=== PATIENT | male | born 1970 | race African-American/Black ===

== ENCOUNTER 2019-05-30 08:38 | Inpatient (IN) ==
[2019-05-30] MEDS ORDERED: ONDANSETRON 4 MG/2 ML VIAL IV STA (09:07)
[2019-05-30 09:27] LABS: Basophils % 0.2 % (0.0-0.8); Eosinophils # 0.1 10*3/uL (0.0-0.87); Eosinophils % 0.6 % (0.00-10.9); Hemoglobin 10.3 GM/DL (14.0-18.0); Immature Granulocytes % 0.6 %; Immature Granulocytes Absolute 0.06 #; Lymphocytes # 0.9 10*3/uL (1.4-4.0); Lymphocytes % 9.2 % (21.2-54.2); Mean Corpuscular HGB Conc 30.3 GM/DL (32-36); Mean Corpuscular Volume 85.2 FL (87-102); Mean Platelet Volume 10.1 FL (9.6-12.0); Monocytes % 8.2 % (1.7-12.7); Neutrophils % 81.2 % (38.7-73.9); Platelet Count 290 T/CUMM (130-400); Red Blood Count 3.99 MC/CUMM (3.8-5.5); Red Cell Distribution Width 21.3 % (9.3-17.3); White Blood Count 10.2 T/CUMM (4-12)
[2019-05-30 09:47] LABS: Alanine Aminotransferase 24 U/L (16-61); Albumin 2.5 G/DL (3.4-5.0); Alkaline Phosphatase 141 U/L (45-117); Aspartate Amino Transferase 24 U/L (0-37); Blood Urea Nitrogen 49 MG/DL (7-18); Calcium 8.5 MG/DL (8.5-10.1); Estimated Glom Filtration Rate 10 ML/MIN; Glucose 116 MG/DL (74-106); Osmolality,Calculated 283.1 MOS/KG (273-304)
[2019-05-30] MEDS ORDERED: VANCOMYCIN INJ 1,000 MG in SODIUM CHLORIDE 0.9% 250 ML IV STA (11:21)
[2019-05-30] MEDS ORDERED: ACETAMINOPHEN 325 MG TABLET PO PRN (11:41)
[2019-05-30] MEDS ORDERED: ONDANSETRON 4 MG/2 ML VIAL IV PRN (11:41)
[2019-05-30] MEDS: HYDROmorphone 2 MG/1 ML VIAL IV PRN ×2 (11:58→17:57)
[2019-05-30] MEDS: ENOXAPARIN 30 MG/0.3 ML SYRINGE SUBCUT SCH (15:08)
[2019-05-30] MEDS ORDERED: DEXTROSE 50% 25 GM/50 ML VIAL IV PRN (17:18)
[2019-05-30] MEDS ORDERED: GLUCAGON 1 MG VIAL IM PRN (17:18)
[2019-05-30] MEDS ORDERED: GENTAMICIN INJ 160 MG in SODIUM CHLORIDE 0.9% 100 ML IV ONE (18:22)
[2019-05-30] MEDS ORDERED: LIDOCAINE/PRILOCAINE CREAM 5 GM TUBE TOP SCH (20:00)
[2019-05-30 20:35] LABS: Hepatitis B Surface Ag Quant < 0.10 Index; Hepatitis B Surface Ag Result Negative (Negative)
[2019-05-30] MEDS: INSULIN REGULAR 100 UNIT/ML SUBCUT SCH (23:03)
[2019-05-30] MEDS: hydrALAZINE 25 MG TABLET PO SCH (23:04)
[2019-05-30] MEDS: METOPROLOL TARTRATE 100 MG TABLET PO SCH (23:04)
[2019-05-30] MEDS: DOCUSATE SODIUM 100 MG CAPSULE PO SCH (23:04)
[2019-05-30] MEDS: CYCLOBENZAPRINE 10 MG TABLET PO SCH (23:04)
[2019-05-31] MEDS: INSULIN REGULAR 100 UNIT/ML SUBCUT SCH ×4 (08:06→20:26)
[2019-05-31] MEDS: ATORVASTATIN 40 MG TABLET PO SCH (08:10)
[2019-05-31] MEDS: PANTOPRAZOLE 40 MG TABLET PO SCH (08:10)
[2019-05-31] MEDS: hydrALAZINE 25 MG TABLET PO SCH ×3 (08:10→20:27)
[2019-05-31] MEDS: METOPROLOL TARTRATE 100 MG TABLET PO SCH ×2 (08:10→20:27)
[2019-05-31] MEDS: DOCUSATE SODIUM 100 MG CAPSULE PO SCH ×2 (08:10→20:27)
[2019-05-31] MEDS: SEVELAMER CARBONATE 800 MG TABLET PO SCH ×3 (08:10→16:58)
[2019-05-31] MEDS: ASPIRIN EC 81 MG TABLET PO SCH (08:10)
[2019-05-31 08:18] LABS: Basophils # 0.1 10*3/uL (0.0-0.2); Basophils % 0.6 % (0.0-0.8); Eosinophils # 0.1 10*3/uL (0.0-0.87); Eosinophils % 1.2 % (0.00-10.9); Hematocrit 34.9 VOL% (42.0-52.0); Hemoglobin 10.5 GM/DL (14.0-18.0); Immature Granulocytes % 0.6 %; Immature Granulocytes Absolute 0.06 #; Lymphocytes # 1.4 10*3/uL (1.4-4.0); Lymphocytes % 13.8 % (21.2-54.2); Mean Corpuscular HGB Conc 30.1 GM/DL (32-36); Mean Corpuscular Volume 86.4 FL (87-102); Mean Platelet Volume 10.1 FL (9.6-12.0); Monocytes % 11.7 % (1.7-12.7); Neutrophils % 72.1 % (38.7-73.9); Platelet Count 270 T/CUMM (130-400); Red Blood Count 4.04 MC/CUMM (3.8-5.5); Red Cell Distribution Width 21.2 % (9.3-17.3); White Blood Count 10.4 T/CUMM (4-12)
[2019-05-31 08:37] LABS: Calcium 8.7 MG/DL (8.5-10.1); Osmolality,Calculated 277.1 MOS/KG (273-304)
[2019-05-31] MEDS: HYDROmorphone 2 MG/1 ML VIAL IV PRN ×2 (11:08→18:23)
[2019-05-31] MEDS: ENOXAPARIN 30 MG/0.3 ML SYRINGE SUBCUT SCH (11:10)
[2019-05-31] MEDS ORDERED: VANCOMYCIN INJ 1,000 MG in SODIUM CHLORIDE 0.9% 250 ML IV SCH (13:00)
[2019-05-31] MEDS ORDERED: VANCOMYCIN INJ 750 MG in SODIUM CHLORIDE 0.9% 250 ML IV PRN (13:54)
[2019-05-31] MEDS ORDERED: VANCOMYCIN INJ 1,500 MG in SODIUM CHLORIDE 0.9% 500 ML IV ONE (15:30)
[2019-05-31 18:56] LABS: Neutrophils,Peritoneal Fluid 44 %
[2019-05-31 18:57] LABS: RBC,Peritoneal Fluid < 1 T/CUMM
[2019-05-31] MEDS: CYCLOBENZAPRINE 10 MG TABLET PO SCH (20:27)
[2019-06-01 04:37] LABS: Basophils # 0.1 10*3/uL (0.0-0.2); Basophils % 0.6 % (0.0-0.8); Eosinophils # 0.2 10*3/uL (0.0-0.87); Eosinophils % 1.6 % (0.00-10.9); Hematocrit 31.2 VOL% (42.0-52.0); Hemoglobin 9.5 GM/DL (14.0-18.0); Immature Granulocytes % 0.5 %; Immature Granulocytes Absolute 0.05 #; Lymphocytes # 1.4 10*3/uL (1.4-4.0); Lymphocytes % 14.7 % (21.2-54.2); Mean Corpuscular HGB Conc 30.4 GM/DL (32-36); Mean Corpuscular Volume 85.7 FL (87-102); Mean Platelet Volume 10.6 FL (9.6-12.0); Monocytes % 11.6 % (1.7-12.7); Platelet Count 266 T/CUMM (130-400); Red Blood Count 3.64 MC/CUMM (3.8-5.5); Red Cell Distribution Width 20.8 % (9.3-17.3); White Blood Count 9.6 T/CUMM (4-12)
[2019-06-01 05:01] LABS: Calcium 8.4 MG/DL (8.5-10.1)
[2019-06-01] MEDS: SEVELAMER CARBONATE 800 MG TABLET PO SCH ×3 (08:34→17:07)
[2019-06-01] MEDS: METOPROLOL TARTRATE 100 MG TABLET PO SCH ×2 (08:34→21:18)
[2019-06-01] MEDS: ASPIRIN EC 81 MG TABLET PO SCH (08:34)
[2019-06-01] MEDS: hydrALAZINE 25 MG TABLET PO SCH ×3 (08:34→21:18)
[2019-06-01] MEDS: DOCUSATE SODIUM 100 MG CAPSULE PO SCH ×2 (08:34→21:18)
[2019-06-01] MEDS: PANTOPRAZOLE 40 MG TABLET PO SCH (08:34)
[2019-06-01] MEDS: ATORVASTATIN 40 MG TABLET PO SCH (08:34)
[2019-06-01] MEDS: HYDROmorphone 2 MG/1 ML VIAL IV PRN ×2 (08:34→13:46)
[2019-06-01] MEDS: INSULIN REGULAR 100 UNIT/ML SUBCUT SCH ×4 (08:38→21:19)
[2019-06-01] MEDS: ENOXAPARIN 30 MG/0.3 ML SYRINGE SUBCUT SCH (12:13)
[2019-06-01] MEDS: CYCLOBENZAPRINE 10 MG TABLET PO SCH (21:18)
[2019-06-02 05:19] LABS: Basophils % 0.3 % (0.0-0.8); Eosinophils # 0.3 10*3/uL (0.0-0.87); Eosinophils % 2.5 % (0.00-10.9); Hematocrit 31.2 VOL% (42.0-52.0); Hemoglobin 9.6 GM/DL (14.0-18.0); Immature Granulocytes % 0.8 %; Immature Granulocytes Absolute 0.08 #; Lymphocytes # 1.3 10*3/uL (1.4-4.0); Lymphocytes % 11.9 % (21.2-54.2); Mean Corpuscular HGB Conc 30.8 GM/DL (32-36); Mean Corpuscular Volume 84.3 FL (87-102); Monocytes % 7.2 % (1.7-12.7); Neutrophils % 77.3 % (38.7-73.9); Platelet Count 297 T/CUMM (130-400); Red Cell Distribution Width 20.7 % (9.3-17.3); White Blood Count 10.5 T/CUMM (4-12)
[2019-06-02 05:50] LABS: Calcium 8.3 MG/DL (8.5-10.1); Osmolality,Calculated 277.4 MOS/KG (273-304)
[2019-06-02] MEDS: METOPROLOL TARTRATE 100 MG TABLET PO SCH ×2 (09:36→20:01)
[2019-06-02] MEDS: ATORVASTATIN 40 MG TABLET PO SCH (09:36)
[2019-06-02] MEDS: ASPIRIN EC 81 MG TABLET PO SCH (09:36)
[2019-06-02] MEDS: PANTOPRAZOLE 40 MG TABLET PO SCH (09:36)
[2019-06-02] MEDS: DOCUSATE SODIUM 100 MG CAPSULE PO SCH ×2 (09:36→20:01)
[2019-06-02] MEDS: hydrALAZINE 25 MG TABLET PO SCH ×3 (09:37→20:01)
[2019-06-02] MEDS: SEVELAMER CARBONATE 800 MG TABLET PO SCH ×3 (09:37→17:16)
[2019-06-02] MEDS: INSULIN REGULAR 100 UNIT/ML SUBCUT SCH ×4 (09:37→20:21)
[2019-06-02] MEDS: HYDROmorphone 2 MG/1 ML VIAL IV PRN ×2 (09:40→16:49)
[2019-06-02] MEDS ORDERED: VANCOMYCIN INJ 750 MG in SODIUM CHLORIDE 0.9% 250 ML IV ONE (17:00)
[2019-06-02] MEDS: ENOXAPARIN 30 MG/0.3 ML SYRINGE SUBCUT SCH (17:17)
[2019-06-02] MEDS ORDERED: GENTAMICIN INJ 100 MG in PREMIX 1 EACH IV SCH (18:00)
[2019-06-02] MEDS: CYCLOBENZAPRINE 10 MG TABLET PO SCH (20:01)
[2019-06-03 05:53] LABS: Basophils # 0.1 10*3/uL (0.0-0.2); Basophils % 0.5 % (0.0-0.8); Eosinophils # 0.2 10*3/uL (0.0-0.87); Eosinophils % 2.5 % (0.00-10.9); Hematocrit 34.3 VOL% (42.0-52.0); Hemoglobin 10.2 GM/DL (14.0-18.0); Immature Granulocytes % 0.9 %; Immature Granulocytes Absolute 0.09 #; Lymphocytes # 1.2 10*3/uL (1.4-4.0); Lymphocytes % 12.3 % (21.2-54.2); Mean Corpuscular HGB Conc 29.7 GM/DL (32-36); Mean Corpuscular Volume 86.6 FL (87-102); Mean Platelet Volume 10.3 FL (9.6-12.0); Neutrophils % 76.8 % (38.7-73.9); Platelet Count 351 T/CUMM (130-400); Red Blood Count 3.96 MC/CUMM (3.8-5.5); Red Cell Distribution Width 21.6 % (9.3-17.3); White Blood Count 9.8 T/CUMM (4-12)
[2019-06-03] MEDS: HYDROmorphone 2 MG/1 ML VIAL IV PRN ×2 (05:53→15:46)
[2019-06-03 06:27] LABS: Calcium 8.1 MG/DL (8.5-10.1); Osmolality,Calculated 286.3 MOS/KG (273-304)
[2019-06-03] MEDS: INSULIN REGULAR 100 UNIT/ML SUBCUT SCH ×4 (08:24→21:20)
[2019-06-03] MEDS: SEVELAMER CARBONATE 800 MG TABLET PO SCH ×3 (09:14→16:59)
[2019-06-03] MEDS: METOPROLOL TARTRATE 100 MG TABLET PO SCH ×2 (09:14→21:21)
[2019-06-03] MEDS: PANTOPRAZOLE 40 MG TABLET PO SCH (09:14)
[2019-06-03] MEDS: ASPIRIN EC 81 MG TABLET PO SCH (09:14)
[2019-06-03] MEDS: hydrALAZINE 25 MG TABLET PO SCH ×3 (09:15→21:21)
[2019-06-03] MEDS: ATORVASTATIN 40 MG TABLET PO SCH (09:15)
[2019-06-03] MEDS: DOCUSATE SODIUM 100 MG CAPSULE PO SCH ×2 (09:15→21:20)
[2019-06-03] MEDS ORDERED: cefTRIAXone 2,000 MG VIAL IM SCH (11:30)
[2019-06-03] MEDS ORDERED: cefTRIAXone 2,000 MG VIAL IV SCH (13:22)
[2019-06-03] MEDS: cefTRIAXone 2,000 MG in SYRINGE 1 EACH IV SCH (15:46)
[2019-06-03] MEDS: ENOXAPARIN 30 MG/0.3 ML SYRINGE SUBCUT SCH (15:46)
[2019-06-03] MEDS: CYCLOBENZAPRINE 10 MG TABLET PO SCH (21:20)
[2019-06-04] MEDS: HYDROmorphone 2 MG/1 ML VIAL IV PRN ×3 (01:25→22:58)
[2019-06-04 05:35] LABS: Basophils # 0.1 10*3/uL (0.0-0.2); Basophils % 0.6 % (0.0-0.8); Eosinophils # 0.3 10*3/uL (0.0-0.87); Eosinophils % 2.7 % (0.00-10.9); Hematocrit 31.4 VOL% (42.0-52.0); Hemoglobin 9.5 GM/DL (14.0-18.0); Lymphocytes # 1.4 10*3/uL (1.4-4.0); Lymphocytes % 13.7 % (21.2-54.2); Mean Corpuscular HGB Conc 30.3 GM/DL (32-36); Mean Corpuscular Volume 86.7 FL (87-102); Mean Platelet Volume 9.8 FL (9.6-12.0); Monocytes % 9.3 % (1.7-12.7); Neutrophils % 72.7 % (38.7-73.9); Platelet Count 373 T/CUMM (130-400); Red Blood Count 3.62 MC/CUMM (3.8-5.5); Red Cell Distribution Width 21.3 % (9.3-17.3); White Blood Count 10.4 T/CUMM (4-12)
[2019-06-04 06:06] LABS: Calcium 8.3 MG/DL (8.5-10.1); Osmolality,Calculated 286.1 MOS/KG (273-304)
[2019-06-04] MEDS: SEVELAMER CARBONATE 800 MG TABLET PO SCH ×3 (09:15→17:39)
[2019-06-04] MEDS: hydrALAZINE 25 MG TABLET PO SCH ×3 (09:15→20:50)
[2019-06-04] MEDS: DOCUSATE SODIUM 100 MG CAPSULE PO SCH ×2 (09:15→20:49)
[2019-06-04] MEDS: INSULIN REGULAR 100 UNIT/ML SUBCUT SCH ×4 (09:15→20:46)
[2019-06-04] MEDS: ASPIRIN EC 81 MG TABLET PO SCH (09:15)
[2019-06-04] MEDS: PANTOPRAZOLE 40 MG TABLET PO SCH (09:15)
[2019-06-04] MEDS: ATORVASTATIN 40 MG TABLET PO SCH (09:15)
[2019-06-04] MEDS: METOPROLOL TARTRATE 100 MG TABLET PO SCH ×2 (09:15→20:49)
[2019-06-04] MEDS: ENOXAPARIN 30 MG/0.3 ML SYRINGE SUBCUT SCH (12:47)
[2019-06-04] MEDS: cefTRIAXone 2,000 MG in SYRINGE 1 EACH IV SCH (14:53)
[2019-06-04] MEDS: CYCLOBENZAPRINE 10 MG TABLET PO SCH (20:49)
[2019-06-05 06:24] LABS: Basophils # 0.1 10*3/uL (0.0-0.2); Basophils % 0.7 % (0.0-0.8); Eosinophils # 0.3 10*3/uL (0.0-0.87); Eosinophils % 3.3 % (0.00-10.9); Hematocrit 32.4 VOL% (42.0-52.0); Hemoglobin 9.7 GM/DL (14.0-18.0); Immature Granulocytes % 0.8 %; Immature Granulocytes Absolute 0.07 #; Lymphocytes # 1.3 10*3/uL (1.4-4.0); Lymphocytes % 14.8 % (21.2-54.2); Mean Corpuscular HGB Conc 29.9 GM/DL (32-36); Mean Corpuscular Volume 86.6 FL (87-102); Mean Platelet Volume 9.6 FL (9.6-12.0); Monocytes % 9.8 % (1.7-12.7); Neutrophils % 70.6 % (38.7-73.9); Platelet Count 355 T/CUMM (130-400); Red Blood Count 3.74 MC/CUMM (3.8-5.5); Red Cell Distribution Width 21.4 % (9.3-17.3); White Blood Count 8.9 T/CUMM (4-12)
[2019-06-05 06:40] LABS: Calcium 8.3 MG/DL (8.5-10.1); Osmolality,Calculated 277.8 MOS/KG (273-304)
[2019-06-05] MEDS: INSULIN REGULAR 100 UNIT/ML SUBCUT SCH ×4 (08:42→20:01)
[2019-06-05] MEDS: PANTOPRAZOLE 40 MG TABLET PO SCH (08:43)
[2019-06-05] MEDS: hydrALAZINE 25 MG TABLET PO SCH ×3 (08:43→20:01)
[2019-06-05] MEDS: METOPROLOL TARTRATE 100 MG TABLET PO SCH ×2 (08:43→20:01)
[2019-06-05] MEDS: ATORVASTATIN 40 MG TABLET PO SCH (08:43)
[2019-06-05] MEDS: SEVELAMER CARBONATE 800 MG TABLET PO SCH ×3 (08:43→17:06)
[2019-06-05] MEDS: DOCUSATE SODIUM 100 MG CAPSULE PO SCH ×2 (08:43→20:01)
[2019-06-05] MEDS: ASPIRIN EC 81 MG TABLET PO SCH (08:44)
[2019-06-05] MEDS: HYDROmorphone 2 MG/1 ML VIAL IV PRN (08:58)
[2019-06-05] MEDS: ENOXAPARIN 30 MG/0.3 ML SYRINGE SUBCUT SCH (12:35)
[2019-06-05] MEDS: cefTRIAXone 2,000 MG in SYRINGE 1 EACH IV SCH (14:34)
[2019-06-05] MEDS: CYCLOBENZAPRINE 10 MG TABLET PO SCH (20:00)
[2019-06-06 07:47] VITALS: BP 121/85
[2019-06-06] MEDS: ATORVASTATIN 40 MG TABLET PO SCH (08:42)
[2019-06-06] MEDS: DOCUSATE SODIUM 100 MG CAPSULE PO SCH (08:42)
[2019-06-06] MEDS: PANTOPRAZOLE 40 MG TABLET PO SCH (08:42)
[2019-06-06] MEDS: hydrALAZINE 25 MG TABLET PO SCH ×2 (08:42→15:42)
[2019-06-06] MEDS: ASPIRIN EC 81 MG TABLET PO SCH (08:42)
[2019-06-06] MEDS: SEVELAMER CARBONATE 800 MG TABLET PO SCH ×2 (08:42→14:20)
[2019-06-06] MEDS: METOPROLOL TARTRATE 100 MG TABLET PO SCH (08:43)
[2019-06-06] MEDS: INSULIN REGULAR 100 UNIT/ML SUBCUT SCH ×2 (08:43→12:13)
[2019-06-06] MEDS ORDERED: VANCOMYCIN INJ 1,000 MG in SODIUM CHLORIDE 0.9% 250 ML IV ONE (13:00)
[2019-06-06] MEDS: ENOXAPARIN 30 MG/0.3 ML SYRINGE SUBCUT SCH (14:20)
[2019-06-06] MEDS: cefTRIAXone 2,000 MG in SYRINGE 1 EACH IV SCH (15:42)
== END 2019-06-06 16:07 | disposition home or self-care (01) | DRG 539 ==
LOC: EDBD → EDUNIT# → N.ED 08:38 → N.EDINP 11:41 → N.5E 13:37
PROVIDERS: ADMIT Family Medicine; ATTEND Family Medicine

== ENCOUNTER 2019-06-13 14:43 | Observation (INO) ==
[2019-06-13] MEDS ORDERED: ORPHENADRINE 60 MG/2 ML VIAL IV STA (15:00)
[2019-06-13] MEDS ORDERED: KETOROLAC 30 MG/1 ML VIAL IV STA (15:00)
[2019-06-13 16:12] LABS: INR 1.3
[2019-06-13 16:21] LABS: Alanine Aminotransferase 24 U/L (16-61); Albumin 2.8 G/DL (3.4-5.0); Alkaline Phosphatase 188 U/L (45-117); Aspartate Amino Transferase 25 U/L (0-37); Blood Urea Nitrogen 77 MG/DL (7-18); Calcium 9.3 MG/DL (8.5-10.1); Estimated Glom Filtration Rate 8 ML/MIN; Glucose 124 MG/DL (74-106); Osmolality,Calculated 293.1 MOS/KG (273-304); Total Protein 7.9 G/DL (6.4-8.3); Troponin I 0.035 NG/ML (0.00-0.045)
[2019-06-13 16:33] LABS: Basophils # 0.1 10*3/uL (0.0-0.2); Basophils % 1.5 % (0.0-0.8); Eosinophils # 0.1 10*3/uL (0.0-0.87); Eosinophils % 0.7 % (0.00-10.9); Hematocrit 37.7 VOL% (42.0-52.0); Hemoglobin 11.4 GM/DL (14.0-18.0); Immature Granulocytes % 0.6 %; Immature Granulocytes Absolute 0.05 #; Lymphocytes % 10.9 % (21.2-54.2); Mean Corpuscular HGB Conc 30.2 GM/DL (32-36); Mean Corpuscular Volume 86.9 FL (87-102); Mean Platelet Volume 10.4 FL (9.6-12.0); Monocytes % 9.7 % (1.7-12.7); NRBC # 0.04 10*3/uL; Neutrophils % 76.6 % (38.7-73.9); Platelet Count 365 T/CUMM (130-400); Red Blood Count 4.34 MC/CUMM (3.8-5.5); Red Cell Distribution Width 21.3 % (9.3-17.3); White Blood Count 8.8 T/CUMM (4-12)
[2019-06-13] MEDS ORDERED: DEXTROSE 10% 250 ML BAG IV PRN (17:56)
[2019-06-13] MEDS ORDERED: GLUCAGON 1 MG VIAL IM PRN (17:56)
[2019-06-13] MEDS ORDERED: ONDANSETRON 4 MG/2 ML VIAL IV PRN (17:56)
[2019-06-13] MEDS ORDERED: ACETAMINOPHEN 325 MG TABLET PO PRN (17:56)
[2019-06-13] MEDS ORDERED: ENOXAPARIN 30 MG/0.3 ML SYRINGE SUBCUT SCH (18:00)
[2019-06-13 18:08] LABS: Sedimentation Rate-Westergren 37 MM/HR (0-15)
[2019-06-13] MEDS ORDERED: LIDOCAINE/PRILOCAINE CREAM 5 GM TUBE TOP SCH (18:30)
[2019-06-13] MEDS ORDERED: METHOCARBAMOL 750 MG TABLET PO SCH (18:30)
[2019-06-13] MEDS ORDERED: VANCOMYCIN INJ 1,000 MG in SODIUM CHLORIDE 0.9% 250 ML IV ONE (18:31)
[2019-06-13] MEDS ORDERED: VANCOMYCIN 1,000 MG VIAL ONE (19:10)
[2019-06-13] MEDS: METOPROLOL TARTRATE 100 MG TABLET PO SCH (21:41)
[2019-06-13] MEDS: hydrALAZINE 25 MG TABLET PO SCH (21:41)
[2019-06-13] MEDS: INSULIN REGULAR 100 UNIT/ML SUBCUT SCH (21:43)
[2019-06-14 06:43] LABS: Basophils # 0.2 10*3/uL (0.0-0.2); Basophils % 1.6 % (0.0-0.8); Eosinophils # 0.2 10*3/uL (0.0-0.87); Eosinophils % 1.7 % (0.00-10.9); Hematocrit 35.8 VOL% (42.0-52.0); Hemoglobin 10.8 GM/DL (14.0-18.0); Immature Granulocytes % 0.4 %; Immature Granulocytes Absolute 0.04 #; Lymphocytes # 1.4 10*3/uL (1.4-4.0); Mean Corpuscular HGB Conc 30.2 GM/DL (32-36); Mean Corpuscular Volume 85.9 FL (87-102); Mean Platelet Volume 10.3 FL (9.6-12.0); Monocytes % 12.6 % (1.7-12.7); NRBC # 0.05 10*3/uL; Neutrophils % 68.7 % (38.7-73.9); Platelet Count 336 T/CUMM (130-400); Red Blood Count 4.17 MC/CUMM (3.8-5.5); Red Cell Distribution Width 21.6 % (9.3-17.3); White Blood Count 9.4 T/CUMM (4-12)
[2019-06-14 07:12] LABS: Albumin 2.5 G/DL (3.4-5.0); Osmolality,Calculated 293.2 MOS/KG (273-304)
[2019-06-14] MEDS: INSULIN REGULAR 100 UNIT/ML SUBCUT SCH ×4 (07:48→21:24)
[2019-06-14] MEDS ORDERED: PANTOPRAZOLE 40 MG TABLET PO SCH (09:00)
[2019-06-14] MEDS: ATORVASTATIN 40 MG TABLET PO SCH (09:13)
[2019-06-14] MEDS: MULTIVITAMIN (BEROCCA) TABLET PO SCH (09:13)
[2019-06-14] MEDS: ASPIRIN EC 81 MG TABLET PO SCH (09:14)
[2019-06-14] MEDS: PANTOPRAZOLE 40 MG TABLET PO SCH (09:14)
[2019-06-14] MEDS: METOPROLOL TARTRATE 100 MG TABLET PO SCH ×2 (09:14→20:34)
[2019-06-14] MEDS: hydrALAZINE 25 MG TABLET PO SCH ×3 (09:14→20:34)
[2019-06-14] MEDS: SEVELAMER CARBONATE 800 MG TABLET PO SCH ×3 (09:17→17:44)
[2019-06-14] MEDS ORDERED: VANCOMYCIN INJ 750 MG in SODIUM CHLORIDE 0.9% 250 ML IV PRN (13:19)
[2019-06-14] MEDS ORDERED: GENTAMICIN INJ 80 MG in PREMIX 1 EACH IV SCH (14:00)
[2019-06-14] MEDS: HEPARIN 5,000 UNIT/1 ML VIAL SUBCUT SCH (17:44)
[2019-06-14] MEDS ORDERED: VANCOMYCIN INJ 750 MG in SODIUM CHLORIDE 0.9% 250 ML IV ONE (18:00)
[2019-06-15] MEDS: HEPARIN 5,000 UNIT/1 ML VIAL SUBCUT SCH ×2 (01:25→12:43)
[2019-06-15 06:55] LABS: Basophils # 0.1 10*3/uL (0.0-0.2); Eosinophils # 0.2 10*3/uL (0.0-0.87); Eosinophils % 1.9 % (0.00-10.9); Hematocrit 32.8 VOL% (42.0-52.0); Hemoglobin 9.9 GM/DL (14.0-18.0); Immature Granulocytes % 0.3 %; Immature Granulocytes Absolute 0.03 #; Lymphocytes % 10.9 % (21.2-54.2); Mean Corpuscular HGB Conc 30.2 GM/DL (32-36); Mean Corpuscular Volume 86.3 FL (87-102); Mean Platelet Volume 9.8 FL (9.6-12.0); Monocytes % 13.6 % (1.7-12.7); NRBC # 0.05 10*3/uL; Neutrophils % 72.3 % (38.7-73.9); Platelet Count 281 T/CUMM (130-400); Red Cell Distribution Width 21.7 % (9.3-17.3); White Blood Count 8.9 T/CUMM (4-12)
[2019-06-15 07:12] LABS: Calcium 8.9 MG/DL (8.5-10.1); Osmolality,Calculated 290.5 MOS/KG (273-304)
[2019-06-15] MEDS: ATORVASTATIN 40 MG TABLET PO SCH (08:17)
[2019-06-15] MEDS: INSULIN REGULAR 100 UNIT/ML SUBCUT SCH ×2 (08:18→12:43)
[2019-06-15] MEDS: hydrALAZINE 25 MG TABLET PO SCH (08:18)
[2019-06-15] MEDS: METOPROLOL TARTRATE 100 MG TABLET PO SCH (08:18)
[2019-06-15] MEDS: MULTIVITAMIN (BEROCCA) TABLET PO SCH (08:18)
[2019-06-15] MEDS: ASPIRIN EC 81 MG TABLET PO SCH (08:18)
[2019-06-15] MEDS: SEVELAMER CARBONATE 800 MG TABLET PO SCH ×2 (08:18→12:43)
[2019-06-15] MEDS: PANTOPRAZOLE 40 MG TABLET PO SCH (08:18)
[2019-06-15 14:24] VITALS: BP 132/88
== END 2019-06-15 15:39 | disposition home or self-care (01) ==
LOC: EDBD → EDUNIT# → N.EDINP 14:43 → N.ED 14:43 → N.EDINP 20:04 → N.5E 20:19
PROVIDERS: ADMIT Internal Medicine; ATTEND Internal Medicine

== ENCOUNTER 2021-05-09 11:47 | Inpatient (IN) ==
[2021-05-09] MEDS ORDERED: MORPHINE 10 MG/1 ML VIAL IV STA (12:12)
[2021-05-09] MEDS ORDERED: ONDANSETRON 4 MG/2 ML VIAL IV STA (12:12)
[2021-05-09] MEDS ORDERED: ASPIRIN 325 MG TABLET PO STA (12:12)
[2021-05-09] MEDS ORDERED: HEPARIN 5,000 UNIT/1 ML VIAL IV STA (12:12)
[2021-05-09] MEDS ORDERED: MIDAZOLAM 2 MG/2 ML VIAL ONE ×2 (12:18→12:58)
[2021-05-09] MEDS ORDERED: fentaNYL 100 MCG/2 ML VIAL ONE (12:18)
[2021-05-09] MEDS ORDERED: MORPHINE 2 MG/1 ML SYRINGE ONE (12:19)
[2021-05-09] MEDS ORDERED: methylPREDNISolone SOD SUC 40 MG/1 ML VIAL ONE (12:22)
[2021-05-09 12:35] LABS: Basophils # 0.1 10*3/uL (0.0-0.2); Basophils % 0.4 % (0.0-0.8); Eosinophils % 0.2 % (0.00-10.9); Hematocrit 33.3 VOL% (42.0-52.0); Hemoglobin 10.4 GM/DL (14.0-18.0); Immature Granulocytes % 2.7 %; Immature Granulocytes Absolute 0.43 #; Lymphocytes # 0.9 10*3/uL (1.4-4.0); Lymphocytes % 5.5 % (21.2-54.2); Mean Corpuscular HGB Conc 31.2 GM/DL (32-36); Mean Corpuscular Volume 90.7 FL (87-102); Mean Platelet Volume 10.7 FL (9.6-12.0); Monocytes % 13.6 % (1.7-12.7); Neutrophils % 77.6 % (38.7-73.9); Platelet Count 217 T/CUMM (130-400); Red Blood Count 3.67 MC/CUMM (3.8-5.5); Red Cell Distribution Width 14.2 % (9.3-17.3); White Blood Count 16.1 T/CUMM (4-12)
[2021-05-09] MEDS ORDERED: ONDANSETRON 4 MG/2 ML VIAL IV PRN (12:37)
[2021-05-09] MEDS ORDERED: SIMETHICONE CHEW 125 MG TABLET PO PRN (12:37)
[2021-05-09] MEDS ORDERED: ALUMINUM/MAGNES/SIMETH MAX STR 30 ML UDCUP PO PRN (12:37)
[2021-05-09] MEDS ORDERED: diphenhydrAMINE CAP 25 MG CAPSULE PO PRN (12:37)
[2021-05-09] MEDS ORDERED: ZALEPLON 5 MG CAPSULE PO PRN (12:37)
[2021-05-09] MEDS ORDERED: METHYLPREDNISOLONE SOD SUC IV STA (12:50)
[2021-05-09] MEDS ORDERED: SODIUM CHLORIDE 0.9% IV STA (12:50)
[2021-05-09 12:55] VITALS: BP 113/74
[2021-05-09] MEDS ORDERED: EPTIFIBATIDE 75 MG/100 ML BOTTLE IV ONE (13:00)
[2021-05-09] MEDS ORDERED: SODIUM CHLORIDE 0.9% 1,000 ML IV SCH (13:00)
[2021-05-09] MEDS ORDERED: EPTIFIBATIDE 20,000 MCG/10 ML VIAL ONE ×2 (13:03→13:08)
[2021-05-09 13:07] LABS: Albumin 2.9 G/DL (3.4-5.0); Bilirubin,Total 0.6 MG/DL (0.20-1.00); Calcium 9.3 MG/DL (8.5-10.1); Osmolality,Calculated 288.4 MOS/KG (273-304); Potassium 5.1 MMOL/L (3.5-5.1); Total Protein 7.8 G/DL (6.4-8.2)
[2021-05-09] MEDS ORDERED: NITROGLYCERIN SL 0.4 MG TABLET SL PRN (13:50)
[2021-05-09] MEDS ORDERED: ACETAMINOPHEN 325 MG TABLET PO PRN (13:50)
[2021-05-09] MEDS ORDERED: [UNRECOGNIZED DRUG - OTHER] PO PRN (14:32)
[2021-05-09] MEDS ORDERED: BISACODYL 5 MG TABLET PO PRN (14:32)
[2021-05-09] MEDS: SEVELAMER CARBONATE 800 MG TABLET PO SCH (18:41)
[2021-05-09] MEDS ORDERED: HEPARIN 10,000 UNIT/10 ML VIAL IV SCH (19:00)
[2021-05-09] MEDS: METOPROLOL TARTRATE 25 MG TABLET PO SCH (20:50)
[2021-05-10 06:07] LABS: Basophils % 0.1 % (0.0-0.8); Hematocrit 33.3 VOL% (42.0-52.0); Hemoglobin 10.5 GM/DL (14.0-18.0); Lymphocytes # 0.5 10*3/uL (1.4-4.0); Lymphocytes % 2.6 % (21.2-54.2); Mean Corpuscular HGB Conc 31.5 GM/DL (32-36); Monocytes % 8.7 % (1.7-12.7); Neutrophils % 87.6 % (38.7-73.9); Platelet Count 263 T/CUMM (130-400); Red Cell Distribution Width 14.3 % (9.3-17.3); White Blood Count 19.5 T/CUMM (4-12)
[2021-05-10 06:31] LABS: Band Neutrophils 1 % (0-10); Bilirubin,Total 0.6 MG/DL (0.20-1.00); Lymphocytes 1 % (20-55); Platelet Estimate Adequate; Segmented Neutrophils 93 % (50-85); Total Cells Counted 100
[2021-05-10 06:32] LABS: Albumin 2.7 G/DL (3.4-5.0); Hypochromasia Slight; Osmolality,Calculated 279.5 MOS/KG (273-304); Risk Ratio 5.23
[2021-05-10] MEDS ORDERED: ATORVASTATIN 40 MG TABLET PO SCH (09:00)
[2021-05-10] MEDS ORDERED: CLOPIDOGREL 75 MG TABLET PO SCH (09:00)
[2021-05-10] MEDS ORDERED: ISOSORBIDE MONONITRATE 30 MG TABLET PO SCH (09:00)
[2021-05-10] MEDS ORDERED: ASPIRIN EC 81 MG TABLET PO SCH ×2 (09:00)
[2021-05-10] MEDS ORDERED: PANTOPRAZOLE 40 MG TABLET PO SCH ×2 (09:00)
[2021-05-10] MEDS: SEVELAMER CARBONATE 800 MG TABLET PO SCH (09:23)
[2021-05-10] MEDS: METOPROLOL TARTRATE 25 MG TABLET PO SCH (09:29)
== END 2021-05-10 13:51 | disposition home or self-care (01) | DRG 286 ==
LOC: N.ED 11:47 → N.CC 12:27 → OBSVTOIN 12:30 → N.CC 12:30 → INTOOBSV 12:30
PROVIDERS: ADMIT Internal Medicine Cardiovascular Disease; ATTEND Internal Medicine Cardiovascular Disease
PROC: CLCCHCL (ICD-10-PCS; 2021-05-09 12:45)